=== PATIENT | female | born 1990 | race Caucasian/White ===

== ENCOUNTER 2018-10-06 15:33 | Emergency (ER) | payer SELFPAY ==
[~2018-10-06] VITALS: Ht 157.5 cm; Wt 80.7 kg
[2018-10-06 15:39] VITALS: BP 127/83; Ht 157.5 cm; Wt 80.7 kg
== END 2018-10-06 16:44 | disposition home or self-care (01) ==
LOC: ED 15:33
DX: H60.92 Unspecified otitis externa, left ear (principal); H66.92 Otitis media, unspecified, left ear
CPT/HCPCS: J1885